=== PATIENT | female | born 1960 ===

== ENCOUNTER 2016-05-26 08:35 | Emergency (ER) | payer MEDICAID ==
[2016-05-26 08:49] VITALS: BP 114/63; PULSE 84; RESP 16; TEMP 98.2; O2SAT 98; BMI 34.7
[2016-05-26] MEDS ORDERED: Sodium Chloride 0.9% 1,000 ML IV STA (09:40)
--- NOTE | 2016-05-26 10:35 | ED PDOC ---
HPI: Headache Time Seen by Provider: 05/26/16 09:18 Chief Complaint (Nursing): Headache Chief Complaint (Provider): Headache History Per: Patient History/Exam Limitations: no limitations Onset/Duration Of Symptoms: Days (x5 days) Current Symptoms Are (Timing): Still Present Additional Complaint(s): 56 y/o female who presents to the emergency department with a complaint of a typical migraine described as a frontal headache x5days. Patient states she is usually able to tolerate Toradol by mouth but currently is unable to because she has been vomiting. Denies photophobia or visual changes. Of note, patient stated she followed up with her nuerologist for migraines. Last CAT Scan performed showed no significant abnormalities. Past Medical History Reviewed: Historical Data, Nursing Documentation, Vital Signs Vital Signs: Last Vital Signs Temp 98.2 F 05/26/16 08:48 Pulse 84 05/26/16 08:48 Resp 16 05/26/16 08:48 BP 114/63 05/26/16 08:48 Pulse Ox 98 05/26/16 08:48 - Medical History PMH: Diabetes, Migraine - Surgical History Surgical History: No Surg Hx - Family History Family History: States: Unknown Family Hx - Social History Current smoker - smoking cessation education provided: No Alcohol: None Drugs: Denies - Allergies Allergies/Adverse Reactions: Allergies Allergy/AdvReac Type Severity Reaction Status Date / Time sumatriptan [From Imitrex] Allergy SWELLING Verified 04/27/15 19:13 sumatriptan succinate Allergy SWELLING Verified 04/27/15 19:13 [From Imitrex] Review of Systems ROS Statement: Except As Marked, All Systems Reviewed And Found Negative Eyes: Negative for: Vision Change (or photophobia) Neurological: Positive for: Headache (frontal) Physical Exam - Reviewed Nursing Documentation Reviewed: Yes Vital Signs Reviewed: Yes - Physical Exam Appears: Positive for: Non-toxic, No Acute Distress Head Exam: Positive for: ATRAUMATIC, NORMOCEPHALIC Skin: Positive for: Normal Color, Warm, Dry Eye Exam: Positive for: Normal appearance. Negative for: Conjunctival injection ENT: Positive for: Normal ENT Inspection. Negative for: Pharyngeal Erythema Neck: Positive for: Normal, Supple Cardiovascular/Chest: Positive for: Regular Rate, Rhythm. Negative for: Murmur Respiratory: Positive for: Normal Breath Sounds. Negative for: Accessory Muscle Use, Respiratory Distress Gastrointestinal/Abdominal: Positive for: Normal Exam, Soft. Negative for: Tenderness Extremity: Positive for: Normal ROM. Negative for: Pedal Edema, Swelling Neurologic/Psych: Positive for: Alert, Oriented - ECG O2 Sat by Pulse Oximetry: 98 (RA) Pulse Ox Interpretation: Normal - Progress ED Course And Treament: Pt administered Toradol and Zofran IM. Re-evaluation Time: 11:24 Condition: Improved Medical Decision Making Medical Decision Making: Time: 9:18 Initial impression: Migraines Initial plan: --Patient is refusing IV meds and only wants IM due to migraines. --Sodium Chloride 1,000 ml IV 1,000 mls/hr --Toradol 30 mg IM --Zofran INJ 4 mg IM --AccuCheck Scribe Attestation: Documented by Amairani Montes, acting as a scribe for Paola Hopson MD. Provider Scribe Attestation: All medical record entries made by the Scribe were at my direction and personally dictated by me. I have reviewed the chart and agree that the record accurately reflects my personal performance of the history, physical exam, medical decision making, and the department course for this patient. I have also personally directed, reviewed, and agree with the discharge instructions and disposition. Disposition - Clinical Impression Clinical Impression: Migraine - Disposition Referrals: Isaac Swanson MD [Primary Care Provider] - Condition: IMPROVED Instructions: Migraine Headache (ED) Print Language: CAPE VERDEAN
== END 2016-05-26 11:30 | disposition home or self-care (01) ==
LOC: H.ER 08:35
DX: G43.909 Migraine, unspecified, not intractable, without status migrainosus (principal); E11.9 Type 2 diabetes mellitus without complications

== ENCOUNTER 2016-06-29 18:08 | Emergency (ER) | payer MEDICAID ==
[2016-06-29 18:09] VITALS: BMI 34.7
[2016-06-29 18:19] VITALS: BP 133/82; PULSE 68; RESP 16; TEMP 98.1; O2SAT 100
--- NOTE | 2016-06-29 18:40 | ED PDOC ---
HPI: Headache Time Seen by Provider: 06/29/16 18:21 Chief Complaint (Nursing): Headache Chief Complaint (Provider): Headache History Per: Patient History/Exam Limitations: no limitations Onset/Duration Of Symptoms: Days (4 days ago) Current Symptoms Are (Timing): Constant Severity: Severe Preceeding Symptoms: Known Migraine Symptoms (similar previous episodes of migraines in the past). denies: Visual Disturbances Associated Symptoms: Nausea, Vomiting, Other (dizziness; denies a fever or difficulty with speech or gait). denies: Photophobia, Blurred Vision Additional Complaint(s): Billie Flanagan is a 56 year old female, with a past medical history of known migraines (last previous onset was 1 month ago), who presents to the emergency department for the evaluation of a headache, localized to her eyes and forehead , that the patient has been experiencing for the past 4 days. Pain is constant, described as severe, and radiates to the back of her head. Patient took Toradol PO prior to arrival; however, it only provided minimal relief, prompting her visit to the ED. She reports one episode of vomiting yesterday and states that she is currently unable to tolerate medications. Associated nausea and dizziness are currently present. Denies a fever, blurry vision, focal weakness, difficulty with speech or an unsteady gait. Stress exacerbates her symptoms. Of note, patient recently came back from [place] where she had to deal with her elderly father's finances. She also has a neurologist that she frequently follows up with. PMD: Isaac Swanson Past Medical History Reviewed: Historical Data, Nursing Documentation, Vital Signs Vital Signs: Last Vital Signs Temp 98.1 F 06/29/16 18:17 Pulse 68 06/29/16 18:17 Resp 16 06/29/16 18:17 BP 133/82 06/29/16 18:17 Pulse Ox 100 06/29/16 18:17 - Medical History PMH: Diabetes, HTN, Migraine - Surgical History Surgical History: - Family History Family History: States: Diabetes, Hypertension - Social History Current smoker - smoking cessation education provided: No Ex-Smoker (has not smoked in the last 12 months): No Alcohol: None Drugs: Denies - Home Medications Home Medications: Ambulatory Orders Medication Instructions Recorded Ketorolac Tromethamine [Toradol] 10 mg PO Q6 PRN #30 tab 06/29/16 Ondansetron ODT [Zofran ODT] 1 odt PO Q6 PRN #30 odt 06/29/16 - Allergies Allergies/Adverse Reactions: Allergies Allergy/AdvReac Type Severity Reaction Status Date / Time No Known Allergies Allergy Verified 06/29/16 18:17 Review of Systems ROS Statement: Except As Marked, All Systems Reviewed And Found Negative Constitutional: Negative for: Fever Eyes: Negative for: Vision Change, Other (focal weakness) Gastrointestinal: Positive for: Nausea, Vomiting Musculoskeletal: Positive for: Other (head pain, localized to her eyes and forehead, radiating to the back of her head) Neurological: Positive for: Headache, Dizziness. Negative for: Change in Speech , Other (unsteady gait) Physical Exam - Reviewed Nursing Documentation Reviewed: Yes Vital Signs Reviewed: Yes - Physical Exam Appears: Positive for: Non-toxic, In Acute Distress (moderate painful distress) Head Exam: Positive for: ATRAUMATIC, NORMAL INSPECTION, NORMOCEPHALIC Skin: Positive for: Normal Color, Warm, Dry Eye Exam: Positive for: EOMI, Normal appearance, PERRL ENT: Positive for: Normal ENT Inspection. Negative for: Pharyngeal Erythema, Tonsillar Exudate Neck: Positive for: Normal, Painless ROM, Supple Cardiovascular/Chest: Positive for: Regular Rate, Rhythm. Negative for: Murmur Respiratory: Positive for: Normal Breath Sounds. Negative for: Wheezing Gastrointestinal/Abdominal: Positive for: Normal Exam, Soft. Negative for: Tenderness Back: Positive for: Normal Inspection. Negative for: Decreased ROM Extremity: Positive for: Normal ROM. Negative for: Deformity Lymphatic: Negative for: Adenopathy Neurologic/Psych: Positive for: Alert, Oriented. Negative for: Motor/Sensory Deficits - ECG O2 Sat by Pulse Oximetry: 100 (RA) Pulse Ox Interpretation: Normal Medical Decision Making Medical Decision Makin:21 Initial Impression: Migraine headache Initial Plan: * Toradol 30 mg IM * Zofran Inj 4 mg IM * Reevaluation 730P Improved and eager to go home. Scribe Attestation: Documented by Jeff Soni, acting as a scribe for Brittney Aragon MD. Provider Scribe Attestation: All medical record entries made by the Scribe were at my direction and personally dictated by me. I have reviewed the chart and agree that the record accurately reflects my personal performance of the history, physical exam, medical decision making, and the department course for this patient. I have also personally directed, reviewed, and agree with the discharge instructions and disposition. Disposition - Clinical Impression Clinical Impression: Migraine - Disposition Referrals: Matheus Skinner MD [Non-Staff] - 07/01/16 (FOLLOW UP WITH YOUR NEUROLOGIST FRIDAY) Disposition: Routine/Home Disposition Time: 19:30 Condition: IMPROVED Prescriptions: Ketorolac Tromethamine [Toradol] 10 mg PO Q6 PRN #30 tab PRN Reason: Headache Ondansetron ODT [Zofran ODT] 1 odt PO Q6 PRN #30 odt PRN Reason: Nausea/Vomiting Instructions: Migraine Headache (ED)
== END 2016-06-29 20:14 | disposition home or self-care (01) ==
LOC: H.ER 18:08
DX: G43.909 Migraine, unspecified, not intractable, without status migrainosus (principal); I10 Essential (primary) hypertension; E11.9 Type 2 diabetes mellitus without complications

== ENCOUNTER 2017-03-05 12:45 | Emergency (ER) | payer MEDICAID ==
[2017-03-05 12:46] VITALS: BMI 34.7
[2017-03-05 13:09] VITALS: BP 132/57; PULSE 70; RESP 16; TEMP 98; O2SAT 99
--- NOTE | 2017-03-05 13:43 | ED PDOC ---
HPI: Headache Time Seen by Provider: 03/05/17 13:17 Chief Complaint (Nursing): Headache Chief Complaint (Provider): Headache History Per: Patient History/Exam Limitations: no limitations Onset/Duration Of Symptoms: Days (x1 week) Current Symptoms Are (Timing): Still Present Quality: Pressure Preceeding Symptoms: None Associated Symptoms: Photophobia, Nausea, Vomiting, Other (dizziness) Additional Complaint(s): Billie Flanagan is a 57 year old female, with a past medical history of hypertension, diabetes, and migraines, who presents to the emergency department complaining of migraines associated with dizziness, nausea, vomit and light sensitivity onset for x1 week. She describes the pain as pressure across the anterior portion of her head. Patient states she took divalproex with some relief. She reports her migraines began after son passed, and are usually triggered by stress. She denies any neck pain or pain in the back of the head. No other medical complaints. PMD: None provided. Past Medical History Reviewed: Historical Data, Nursing Documentation, Vital Signs Vital Signs: Last Vital Signs Temp 98.0 F 03/05/17 13:05 Pulse 70 03/05/17 13:05 Resp 16 03/05/17 13:05 BP 132/57 L 03/05/17 13:05 Pulse Ox 99 03/05/17 13:05 - Medical History PMH: Diabetes, HTN, Migraine - Surgical History Surgical History: - Family History Family History: States: Unknown Family Hx, Diabetes, Hypertension - Home Medications Home Medications: Ambulatory Orders Medication Instructions Recorded Ketorolac Tromethamine [Toradol] 10 mg PO Q6 PRN #30 tab 06/29/16 Ondansetron ODT [Zofran ODT] 1 odt PO Q6 PRN #30 odt 06/29/16 Acetaminophen/Butalbital/Caf 1 tab PO Q4 #10 tab 03/05/17 [Fioricet] Ketorolac Tromethamine [Toradol] 10 mg PO Q4 #30 tab 03/05/17 Meclizine [Meclizine*] 25 mg PO Q6 #30 tab 03/05/17 - Allergies Allergies/Adverse Reactions: Allergies Allergy/AdvReac Type Severity Reaction Status Date / Time No Known Allergies Allergy Verified 03/05/17 13:05 Review of Systems ROS Statement: Except As Marked, All Systems Reviewed And Found Negative Eyes: Positive for: Other (light sensitivity) Gastrointestinal: Positive for: Nausea, Vomiting Musculoskeletal: Negative for: Neck Pain Neurological: Positive for: Headache, Dizziness Physical Exam - Reviewed Nursing Documentation Reviewed: Yes Vital Signs Reviewed: Yes - Physical Exam Appears: Positive for: Non-toxic Head Exam: Positive for: ATRAUMATIC, NORMAL INSPECTION, NORMOCEPHALIC Skin: Positive for: Normal Color, Warm, Dry Eye Exam: Positive for: Normal appearance Neck: Positive for: Normal, Painless ROM, Supple Extremity: Positive for: Normal ROM. Negative for: Pedal Edema, Deformity, Swelling Neurologic/Psych: Positive for: Alert, Oriented - ECG O2 Sat by Pulse Oximetry: 99 (RA) Pulse Ox Interpretation: Normal Medical Decision Making Medical Decision Making: Initial Impression: Migraines Initial Plan: --Toradol 30 mg IM --Reglan 10 mg PO --reevaluation 14:35 --Upon provider reevaluation patient is feeling better, is medically stable, and requires no further treatment in the ED at this time. Patient will be discharged with Rx for Toradol, Meclizine, and Fioricet. Counseling was provided and all questions were answered regarding diagnosis. There is agreement to discharge plan. Return if symptoms persist or worsen. ~ Scribe Attestation: Documented by Jeff Del Cid, acting as a scribe for Brittney Hummel PA-C. Provider Scribe Attestation: All medical record entries made by the Scribe were at my direction and personally dictated by me. I have reviewed the chart and agree that the record accurately reflects my personal performance of the history, physical exam, medical decision making, and the department course for this patient. I have also personally directed, reviewed, and agree with the discharge instructions and disposition. Disposition - Clinical Impression Clinical Impression: Migraine - Patient ED Disposition Is Patient to be Admitted: No - Disposition Disposition: Routine/Home Disposition Time: 14:35 Condition: STABLE Prescriptions: Acetaminophen/Butalbital/Caf [Fioricet] 1 tab PO Q4 #10 tab Ketorolac Tromethamine [Toradol] 10 mg PO Q4 #30 tab Meclizine [Meclizine*] 25 mg PO Q6 #30 tab Instructions: Migraine Headache (ED) Forms: [facility] (Georgian) Print Language: GREENLANDIC
[2017-03-05] MEDS: Metoclopramide 10 mg/10 ml Cup PO STA (14:04)
== END 2017-03-05 14:45 | disposition home or self-care (01) ==
LOC: H.ER 12:45
DX: G43.909 Migraine, unspecified, not intractable, without status migrainosus (principal); E11.9 Type 2 diabetes mellitus without complications; I10 Essential (primary) hypertension
CPT/HCPCS: 96372; 99284; J1885

== ENCOUNTER 2017-05-05 13:28 | Emergency (ER) | payer MEDICAID ==
[2017-05-05 13:28] VITALS: BMI 34.7
[2017-05-05 13:39] VITALS: BP 116/63; PULSE 67; RESP 16; TEMP 98.6; O2SAT 99
--- NOTE | 2017-05-05 15:03 | ED PDOC ---
HPI: Headache Time Seen by Provider: 05/05/17 13:55 Chief Complaint (Nursing): Headache History Per: Patient History/Exam Limitations: no limitations Onset/Duration Of Symptoms: Days (1), Gradual Current Symptoms Are (Timing): Still Present Severity: Moderate Quality: Dull, Aching Preceeding Symptoms: None Associated Symptoms: denies: Photophobia, Blurred Vision, Nausea, Vomiting, Extremity Weakness Additional History Per: Patient Additional Complaint(s): Complaints of headache beginning yesterday associated with nausea. Hx of Migraines and this is exactly the same to her sx in the past approx 6 visits last year for the same complaint denies head trauma or neck pain. sx exacerbated when she "gets stressed". Took medication for dizziness today. Past Medical History Reviewed: Historical Data, Nursing Documentation, Vital Signs Vital Signs: Last Vital Signs Temp 98.6 F 05/05/17 13:36 Pulse 67 05/05/17 13:36 Resp 16 05/05/17 13:36 BP 116/63 05/05/17 13:36 Pulse Ox 99 05/05/17 13:36 - Medical History PMH: Diabetes, HTN, Migraine - Surgical History Surgical History: - Family History Family History: States: Unknown Family Hx, Diabetes, Hypertension - Living Arrangements Living Arrangements: With Family - Social History Current smoker - smoking cessation education provided: No - Home Medications Home Medications: Ambulatory Orders Medication Instructions Recorded Ketorolac Tromethamine [Toradol] 10 mg PO Q6 PRN #30 tab 06/29/16 Ondansetron ODT [Zofran ODT] 1 odt PO Q6 PRN #30 odt 06/29/16 Acetaminophen/Butalbital/Caf 1 tab PO Q4 #10 tab 03/05/17 [Fioricet] Ketorolac Tromethamine [Toradol] 10 mg PO Q4 #30 tab 03/05/17 Meclizine [Meclizine*] 25 mg PO Q6 #30 tab 03/05/17 - Allergies Allergies/Adverse Reactions: Allergies Allergy/AdvReac Type Severity Reaction Status Date / Time No Known Allergies Allergy Verified 03/05/17 13:05 Review of Systems ROS Statement: Except As Marked, All Systems Reviewed And Found Negative Constitutional: Negative for: Fever, Chills Cardiovascular: Negative for: Chest Pain, Palpitations Respiratory: Negative for: Cough, Shortness of Breath Gastrointestinal: Negative for: Nausea, Vomiting, Abdominal Pain, Diarrhea Neurological: Positive for: Headache, Dizziness. Negative for: Weakness, Numbness, Incoordination, Change in Speech, Confusion, Seizures, Altered Mental Status Physical Exam - Reviewed Nursing Documentation Reviewed: Yes Vital Signs Reviewed: Yes - Physical Exam Appears: Positive for: Uncomfortable Head Exam: Positive for: ATRAUMATIC, NORMAL INSPECTION, NORMOCEPHALIC Eye Exam: Positive for: Normal appearance, EOMI, PERRL. Negative for: Nystagmus , Periorbital swelling, Periorbital tenderness, Conjunctival injection, Scleral icterus Neck: Positive for: Normal, Painless ROM, Supple. Negative for: Decreased ROM, Limited ROM, Trachea Midline, Pain On Movement Of Neck Cardiovascular/Chest: Positive for: Regular Rate, Rhythm, Chest Non Tender. Negative for: Edema, Gallop, Murmur, Bradycardia, Tachycardia Respiratory: Positive for: Normal Breath Sounds. Negative for: Decreased Breath Sounds, Accessory Muscle Use, Crackles, Rales, Rhonchi, Stridor, Wheezing , Respiratory Distress Gastrointestinal/Abdominal: Positive for: Normal Exam, Bowel Sounds, Soft. Negative for: Tenderness Extremity: Positive for: Normal ROM. Negative for: Tenderness, Pedal Edema Neurologic/Psych: Positive for: Alert, mower sharpener II-XII, Oriented, Mood/Affect ( anxious), Cerebellar Tests (nml), Gait (steady). Negative for: Motor/Sensory Deficits, Aphasia, Facial Droop - ECG O2 Sat by Pulse Oximetry: 99 Pulse Ox Interpretation: Normal - Progress ED Course And Treament: sx markedly improved. refuses any other treatment will f/u with private neurologist. all of pt's questions were answered and pt agree's with plan. pt leaves ambulatory and in good spirits. Re-evaluation Time: 16:22 Condition: Improved Medical Decision Making Medical Decision Making: pt refusing labs and ct scan pt made aware fo risks states last several ct scan were nml. Disposition - Clinical Impression Clinical Impression: Acute headache, Chronic headache disorder - Patient ED Disposition Is Patient to be Admitted: No Counseled Patient/Family Regarding: Studies Performed, Diagnosis, Need For Followup - Disposition Referrals: [facility] [Outside] (2 to 3 days, our your private neurologist) Disposition: Routine/Home Disposition Time: 16:00 Condition: STABLE Instructions: Acute Headache (ED) Forms: [facility] (Filipino), [facility] (Thai) Print Language: MALIAN
== END 2017-05-05 16:56 | disposition home or self-care (01) ==
LOC: H.ER 13:28
DX: R51 Headache (principal); E11.9 Type 2 diabetes mellitus without complications; G89.29 Other chronic pain; I10 Essential (primary) hypertension
CPT/HCPCS: 82948; 96372; 99284; J1885

== ENCOUNTER 2017-06-11 10:55 | Emergency (ER) | payer MEDICAID ==
[2017-06-11 11:08] VITALS: BMI 33.6
[2017-06-11 11:09] VITALS: PULSE 66; RESP 16; TEMP 98.4
--- NOTE | 2017-06-11 12:14 | ED PDOC ---
HPI: Headache Time Seen by Provider: 06/11/17 11:00 Chief Complaint (Nursing): Headache Chief Complaint (Provider): Headache, Dizziness History Per: Patient History/Exam Limitations: no limitations Onset/Duration Of Symptoms: Days (x 3) Current Symptoms Are (Timing): Still Present Additional Complaint(s): Billie is a 57 y/o female with a history of migraines who presents to the ED complaining of migraine and vertigo for the past 3 days. Patient states she frequently gest headachse like this, due to her migraines. its progressive, non thunderclap and non maximal at onset. Denies fever, vomiting, or diarrhea. PMD: [place]ast[place] Past Medical History Reviewed: Historical Data, Nursing Documentation, Vital Signs Vital Signs: Last Vital Signs Temp 98.4 F 06/11/17 11:08 Pulse 66 06/11/17 11:08 Resp 16 06/11/17 11:08 BP 130/82 06/11/17 11:08 Pulse Ox 97 06/11/17 11:08 - Medical History PMH: Diabetes, HTN, Migraine - Surgical History Surgical History: - Family History Family History: States: Unknown Family Hx, Diabetes, Hypertension - Social History Current smoker - smoking cessation education provided: No Alcohol: None Drugs: Denies - Home Medications Home Medications: Ambulatory Orders Medication Instructions Recorded Ketorolac Tromethamine [Toradol] 10 mg PO Q6 PRN #30 tab 06/29/16 Ondansetron ODT [Zofran ODT] 1 odt PO Q6 PRN #30 odt 06/29/16 Acetaminophen/Butalbital/Caf 1 tab PO Q4 #10 tab 03/05/17 [Fioricet] Ketorolac Tromethamine [Toradol] 10 mg PO Q4 #30 tab 03/05/17 Meclizine [Meclizine*] 25 mg PO Q6 #30 tab 03/05/17 Acetaminophen/Butalbital/Caf 1 tab PO Q6 PRN #12 tab 05/05/17 [Fioricet] - Allergies Allergies/Adverse Reactions: Allergies Allergy/AdvReac Type Severity Reaction Status Date / Time No Known Allergies Allergy Verified 03/05/17 13:05 Review of Systems ROS Statement: Except As Marked, All Systems Reviewed And Found Negative Constitutional: Negative for: Fever Gastrointestinal: Negative for: Vomiting, Diarrhea Neurological: Positive for: Headache, Dizziness Physical Exam - Reviewed Nursing Documentation Reviewed: Yes Vital Signs Reviewed: Yes - Physical Exam Appears: Positive for: Well, Non-toxic, No Acute Distress Skin: Positive for: Normal Color, Warm, Dry Eye Exam: Positive for: Normal appearance ENT: Positive for: Normal ENT Inspection Neck: Positive for: Normal Cardiovascular/Chest: Positive for: Regular Rate, Rhythm. Negative for: Murmur Respiratory: Positive for: Normal Breath Sounds. Negative for: Wheezing, Respiratory Distress Gastrointestinal/Abdominal: Positive for: Normal Exam, Soft. Negative for: Tenderness Extremity: Positive for: Normal ROM Neurologic/Psych: Positive for: Alert, medicaid plan compliance director II-XII, Oriented, Gait (stable). Negative for: Motor/Sensory Deficits, Aphasia, Facial Droop - ECG O2 Sat by Pulse Oximetry: 97 (RA) Pulse Ox Interpretation: Normal Medical Decision Making Medical Decision Making: Time: 12:05 Initial Impression: Migraine, Vertigo normal neurological exam. history of migraines. Initial Plan: --CMP --CBC --Reglan --Toradol Time: 13:48 --Patient refusing bloodwork. States she is seeing her neurologist in 3 days where she will have that done. Only wants Reglan PO and Toradol IM Time: 15:00 --Patient reports feeling better. stable gait. normal neurological exam. Stable for discharge home. Scribe Attestation: Documented by David Tucker, acting as a scribe for Suze Cheek MD Provider Scribe Attestation: All medical record entries made by the Scribe were at my direction and personally dictated by me. I have reviewed the chart and agree that the record accurately reflects my personal performance of the history, physical exam, medical decision making, and the department course for this patient. I have also personally directed, reviewed, and agree with the discharge instructions and disposition. Disposition - Clinical Impression Clinical Impression: Migraine - Patient ED Disposition Is Patient to be Admitted: No Counseled Patient/Family Regarding: Diagnosis, Need For Followup - Disposition Disposition: Routine/Home Disposition Time: 13:00 Condition: IMPROVED Additional Instructions: follow up with your primary doctor in 1-2 days return to the ED with any worsening or concerning symptoms Instructions: Migraine Headaches in Adults Forms: [facility] (Angolan)
[2017-06-11 15:21] VITALS: BP 136/72
[2017-06-12 21:45] VITALS: O2SAT 97
== END 2017-06-11 15:21 | disposition home or self-care (01) ==
LOC: H.ER 10:55
DX: G43.909 Migraine, unspecified, not intractable, without status migrainosus (principal); E11.9 Type 2 diabetes mellitus without complications; I10 Essential (primary) hypertension
CPT/HCPCS: 96372; 99283; J1885

== ENCOUNTER 2017-08-01 10:23 | Emergency (ER) | payer MEDICAID ==
[2017-08-01 10:42] VITALS: BMI 41.3
[2017-08-01] MEDS ORDERED: Sodium Chloride 0.9% 1,000 ML IV STA (11:23)
--- NOTE | 2017-08-01 11:28 | ED PDOC ---
HPI: Headache Chief Complaint (Provider): headache History Per: Patient History/Exam Limitations: no limitations Onset/Duration Of Symptoms: Days Current Symptoms Are (Timing): Constant Pain Scale Rating Of: 10 Quality: "Pain" Preceeding Symptoms: denies: Visual Disturbances Associated Symptoms: Photophobia. denies: Blurred Vision, Nausea, Vomiting, Extremity Weakness Additional Complaint(s): 57 y/o F with h/o Migraine headaches presents complaining of similar episode of her migraine headaches. Her headaches started on Friday, daily, but not constant , taken Fioricet, but is not helping, no radiating, aggravating with lights, loud noises, improving when lying quiet in a dark room. Patient states that this is not the worse headaches of her life. Denies N/V, Cp, SOB, fevers, chills , blurry vision, tingling, numbness, or weakness. PMD: Dr. Fernandez PMHx: HTN, DM <Kianna Barnes - Last Filed: 08/01/17 14:08> <Juan Carlos Cifuentes - Last Filed: 08/01/17 14:15> Time Seen by Provider: 08/01/17 11:06 Chief Complaint (Nursing): Headache Supervising Attending Note - Supervising Attending Note The Documented history was done by the: Physician Automated Access Systems Technician The documented physical exam was done by the: Physician Automated Access Systems Technician The documented procedures were done by the: Physician Automated Access Systems Technician - Attestation: I have personally seen and examined this patient.: Yes I have fully participated in the care of the patient.: Yes I have reviewed all pertinent clinical information: Yes - Notes: Notes:: migraine. Same as previous. No neck pain. Not worst in her life. No numbness , tingles, weakness. <Juan Carlos Cifuentes - Last Filed: 08/01/17 14:15> Past Medical History Vital Signs: Last Vital Signs Temp 97.4 F L 08/01/17 10:40 Pulse 65 08/01/17 10:40 Resp 20 08/01/17 10:40 BP 126/90 08/01/17 10:40 Pulse Ox 100 08/01/17 10:40 - Medical History PMH: Diabetes, HTN, Migraine - Surgical History Surgical History: Other surgeries: Right knee surgery - Family History Family History: States: Unknown Family Hx, Diabetes, Hypertension - Social History Current smoker - smoking cessation education provided: No Ex-Smoker (has not smoked in the last 12 months): No Alcohol: None Drugs: Denies <Kianna Barnes - Last Filed: 08/01/17 14:08> Vital Signs: Last Vital Signs Temp 97.4 F L 08/01/17 10:40 Pulse 65 08/01/17 10:40 Resp 20 08/01/17 10:40 BP 126/90 08/01/17 10:40 Pulse Ox 100 08/01/17 14:12 <Juan Carlos Cifuentes - Last Filed: 08/01/17 14:15> - Home Medications Home Medications: Ambulatory Orders Medication Instructions Recorded Ketorolac Tromethamine [Toradol] 10 mg PO Q6 PRN #30 tab 06/29/16 Ondansetron ODT [Zofran ODT] 1 odt PO Q6 PRN #30 odt 06/29/16 Acetaminophen/Butalbital/Caf 1 tab PO Q4 #10 tab 03/05/17 [Fioricet] Ketorolac Tromethamine [Toradol] 10 mg PO Q4 #30 tab 03/05/17 Meclizine [Meclizine*] 25 mg PO Q6 #30 tab 03/05/17 Acetaminophen/Butalbital/Caf 1 tab PO Q6 PRN #12 tab 05/05/17 [Fioricet] Ibuprofen [Motrin Tab] 600 mg PO Q8 PRN #15 tab 08/01/17 - Allergies Allergies/Adverse Reactions: Allergies Allergy/AdvReac Type Severity Reaction Status Date / Time No Known Allergies Allergy Verified 08/01/17 11:10 Review of Systems ROS Statement: Except As Marked, All Systems Reviewed And Found Negative (as per HPI) <Kianna Barnes - Last Filed: 08/01/17 14:08> Physical Exam - Reviewed Nursing Documentation Reviewed: Yes Vital Signs Reviewed: Yes - Physical Exam Appears: Positive for: Non-toxic, No Acute Distress Head Exam: Positive for: ATRAUMATIC, NORMOCEPHALIC Skin: Positive for: Normal Color, Warm, Dry. Negative for: Diaphoresis, Pallor , Rash ENT: Positive for: Pharynx Is (normal), TM Is/Are (intact and normal). Negative for: Sinus Pain/Drainage, Nasal Congestion, Pharyngeal Erythema, Tonsillar Exudate Neck: Positive for: Normal, Supple Cardiovascular/Chest: Positive for: Regular Rate, Rhythm. Negative for: Chest Non Tender, Edema, Gallop, Friction Rub Respiratory: Positive for: Normal Breath Sounds. Negative for: Decreased Breath Sounds, Accessory Muscle Use, Crackles, Rales, Rhonchi, Stridor, Wheezing , Respiratory Distress Gastrointestinal/Abdominal: Positive for: Bowel Sounds (present and normal), Soft. Negative for: Tenderness, Distended, Guarding, Rebound Back: Positive for: Normal Inspection Extremity: Negative for: Pedal Edema, Calf Tenderness Neurologic/Psych: Positive for: Alert, security system sales consultant II-XII (grossly intact), Oriented (x 3). Negative for: Motor/Sensory Deficits, Gait, Aphasia, Facial Droop <Kianna Barnes - Last Filed: 08/01/17 14:08> - ECG O2 Sat by Pulse Oximetry: 100 <Kianna Barnes - Last Filed: 08/01/17 14:08> - ECG Pulse Ox Interpretation: Normal - Progress ED Course And Treament: 1414: Stable. AAOx3. Pain free. Wants to go home. Tolerated PO. <Juan Carlos Cifuentes - Last Filed: 08/01/17 14:15> Medical Decision Making Medical Decision Making: Headaches -most likely migraine headaches -no neurological defects -Reglan 10 mg IV once -IV fluids bolus once case discussed with Dr. Cifuentes -re-assess Re-evaluation -patient refused Reglan -Toradol 15 mg given -patient feels better, headaches improved significantly, ad she would like to go home -stable for DC home, and f/u with PMD in 1 week. -ER precautions given <Kianna Barnes - Last Filed: 08/01/17 14:08> Disposition - Patient ED Disposition Is Patient to be Admitted: No Discussed With : Juan Carlos Cifuentes - Disposition Disposition: Routine/Home Disposition Time: 13:55 <Kianna Barnes Last Filed: 08/01/17 14:08> - Patient ED Disposition Is Patient to be Admitted: No - Disposition Disposition: Routine/Home <Juan Carlos Cifuentes Last Filed: 08/01/17 14:15> - Clinical Impression Clinical Impression: Headache - Disposition Referrals: [facility] [Outside] - 08/04/17 Condition: STABLE Additional Instructions: F/u with PMD in 2-3 days E precautions given Prescriptions: Ibuprofen [Motrin Tab] 600 mg PO Q8 PRN #15 tab PRN Reason: Headache Instructions: Headache, Adult (DC) Print Language: SOUTH KOREAN
[2017-08-01 14:50] VITALS: BP 125/79; PULSE 76; RESP 16; TEMP 98.2; O2SAT 98
== END 2017-08-01 14:50 | disposition home or self-care (01) ==
LOC: H.ER 10:23
DX: R51 Headache (principal); E11.9 Type 2 diabetes mellitus without complications; I10 Essential (primary) hypertension; Z87.891 Personal history of nicotine dependence
CPT/HCPCS: 96374; 99285; J1885; J7030

== ENCOUNTER 2017-11-07 10:01 | Emergency (ER) | payer MEDICAID ==
[2017-11-07 10:02] VITALS: BMI 41.3
[2017-11-07 10:22] VITALS: BP 110/70; PULSE 74; RESP 18; TEMP 98.1; O2SAT 99
--- NOTE | 2017-11-07 10:47 | ED PDOC ---
Syncope/Near Syncope/Dizziness Time Seen by Provider: 11/07/17 10:20 Chief Complaint (Nursing): Dizziness/Lightheaded Chief Complaint (Provider): Dizziness/Lightheaded History Per: Patient History/Exam Limitations: no limitations Activity At Onset Of Symptoms: Walking Additional Complaint(s): 57 years old female with history of diabetes, asthma and migraine headaches presents to the ED for evaluation of constant headaches associated with dizziness, nausea and vomiting. Patient reports she has not seen her PMD for 3 months and will visit his office on Friday for asthma. She states she feels uncomfortable with walking. Patient reports taking Tylenol yesterday 2 tablets every 6 hours with no improvement, and 500 mg Naproxen that was prescribed for her by her neurologist. Patient denies fever, fall, sore throat, burning with urination or taking any medications for migraines. PMD: Talisha Past Medical History Reviewed: Historical Data, Nursing Documentation, Vital Signs Vital Signs: Last Vital Signs Temp 98.1 F 11/07/17 10:12 Pulse 74 11/07/17 10:12 Resp 18 11/07/17 10:12 BP 110/70 11/07/17 10:12 Pulse Ox 99 11/07/17 10:12 - Medical History PMH: Diabetes, HTN, Migraine - Surgical History Surgical History: Back Surgery, Other surgeries: Right knee surgery - Family History Family History: States: Unknown Family Hx, Diabetes, Hypertension - Social History Current smoker - smoking cessation education provided: No Alcohol: None Drugs: Denies - Immunization History Hx Tetanus Toxoid Vaccination: No Hx Influenza Vaccination: No Hx Pneumococcal Vaccination: No - Home Medications Home Medications: Ambulatory Orders Medication Instructions Recorded Ketorolac Tromethamine [Toradol] 10 mg PO Q6 PRN #30 tab 06/29/16 Ondansetron ODT [Zofran ODT] 1 odt PO Q6 PRN #30 odt 06/29/16 Acetaminophen/Butalbital/Caf 1 tab PO Q4 #10 tab 03/05/17 [Fioricet] Ketorolac Tromethamine [Toradol] 10 mg PO Q4 #30 tab 03/05/17 Meclizine [Meclizine*] 25 mg PO Q6 #30 tab 03/05/17 Acetaminophen/Butalbital/Caf 1 tab PO Q6 PRN #12 tab 05/05/17 [Fioricet] Ibuprofen [Motrin Tab] 600 mg PO Q8 PRN #15 tab 08/01/17 Ketorolac Tromethamine [Toradol] 10 mg PO Q6H PRN #19 tab 11/07/17 - Allergies Allergies/Adverse Reactions: Allergies Allergy/AdvReac Type Severity Reaction Status Date / Time No Known Allergies Allergy Verified 08/01/17 11:10 Review of Systems ROS Statement: Except As Marked, All Systems Reviewed And Found Negative Constitutional: Negative for: Fever ENT: Negative for: Throat Pain Gastrointestinal: Positive for: Nausea, Vomiting Genitourinary Female: Negative for: Dysuria Neurological: Positive for: Headache, Dizziness Physical Exam - Reviewed Nursing Documentation Reviewed: Yes Vital Signs Reviewed: Yes - Physical Exam Appears: Positive for: Non-toxic, No Acute Distress Head Exam: Positive for: ATRAUMATIC, NORMOCEPHALIC Skin: Positive for: Normal Color, Warm, Dry Eye Exam: Positive for: Normal appearance Neck: Positive for: Normal, Supple Cardiovascular/Chest: Positive for: Regular Rate, Rhythm. Negative for: Murmur Respiratory: Positive for: Normal Breath Sounds. Negative for: Wheezing, Respiratory Distress Gastrointestinal/Abdominal: Positive for: Normal Exam, Soft. Negative for: Tenderness Back: Negative for: L CVA Tenderness, R CVA Tenderness Extremity: Positive for: Normal ROM. Negative for: Tenderness, Swelling Neurologic/Psych: Positive for: Alert, Oriented (x3) - ECG O2 Sat by Pulse Oximetry: 99 (RA) Pulse Ox Interpretation: Normal Medical Decision Making Medical Decision Making: Time: 1048 Initial Impression: Migraines Initial Plan: --Dipstick urine --Toradol 60 mg IM ----- Scribe Attestation: Documented by Elo Lara, acting as a scribe for Yolis Siddiqui MD. Provider Scribe Attestation: All medical record entries made by the Scribe were at my direction and personally dictated by me. I have reviewed the chart and agree that the record accurately reflects my personal performance of the history, physical exam, medical decision making, and the department course for this patient. I have also personally directed, reviewed, and agree with the discharge instructions and disposition. Disposition - Clinical Impression Clinical Impression: Migraine - Patient ED Disposition Is Patient to be Admitted: No Doctor Will See Patient In The: Office Counseled Patient/Family Regarding: Diagnosis, Need For Followup, Rx Given - Disposition Disposition: Routine/Home Disposition Time: 12:00 Condition: IMPROVED Prescriptions: Ketorolac Tromethamine [Toradol] 10 mg PO Q6H PRN #19 tab PRN Reason: Pain, Moderate (4-7) Instructions: Migraine Headache (DC) Forms: [employer] (Kazakh) Print Language: BELGIAN - POA Present On Arrival: None
== END 2017-11-07 12:45 | disposition home or self-care (01) ==
LOC: H.ER 10:01
DX: G43.909 Migraine, unspecified, not intractable, without status migrainosus (principal); E11.9 Type 2 diabetes mellitus without complications; I10 Essential (primary) hypertension
CPT/HCPCS: 96372; 99283; J1885

== ENCOUNTER 2018-02-25 16:29 | Emergency (ER) | payer OTHER, MEDICAID ==
--- NOTE | 2018-02-25 20:03 | ED PDOC ---
Lower Extremity Pain/Injury Time Seen by Provider: 02/25/18 19:21 Chief Complaint (Nursing): Lower Extremity Problem/Injury Chief Complaint (Provider): Right knee pain History Per: Patient History/Exam Limitations: no limitations Onset/Duration Of Symptoms: Days (2 weeks) Current Symptoms Are (Timing): Still Present Additional Complaint(s): 58 year old female presents to the ED for an evaluation of right leg pain. 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 She did obtain an MRI and was told she has bone to bone. Patient has been going to therapy. Two weeks ago, in therapy, weight was placed on her leg and now she complaints of pain and inflammation. Otherwise, patient denies fever or chills. PMD: Non [facility] provider Past Medical History Reviewed: Historical Data, Nursing Documentation, Vital Signs - Medical History PMH: Diabetes, HTN, Migraine - Surgical History Surgical History: Back Surgery, - Family History Family History: States: Unknown Family Hx, Diabetes, Hypertension - Immunization History Hx Tetanus Toxoid Vaccination: No Hx Influenza Vaccination: No Hx Pneumococcal Vaccination: No - Home Medications Home Medications: Ambulatory Orders Medication Instructions Recorded Ketorolac Tromethamine [Toradol] 10 mg PO Q6 PRN #30 tab 06/29/16 Ondansetron ODT [Zofran ODT] 1 odt PO Q6 PRN #30 odt 06/29/16 Acetaminophen/Butalbital/Caf 1 tab PO Q4 #10 tab 03/05/17 [Fioricet] Ketorolac Tromethamine [Toradol] 10 mg PO Q4 #30 tab 03/05/17 Meclizine [Meclizine*] 25 mg PO Q6 #30 tab 03/05/17 Acetaminophen/Butalbital/Caf 1 tab PO Q6 PRN #12 tab 05/05/17 [Fioricet] Ibuprofen [Motrin Tab] 600 mg PO Q8 PRN #15 tab 08/01/17 Ketorolac Tromethamine [Toradol] 10 mg PO Q6H PRN #19 tab 11/07/17 Cyclobenzaprine [Flexeril] 10 mg PO TID #27 tab 02/25/18 Diclofenac Sodium 50 mg PO BID #30 tablet. 02/25/18 - Allergies Allergies/Adverse Reactions: Allergies Allergy/AdvReac Type Severity Reaction Status Date / Time No Known Allergies Allergy Verified 08/01/17 11:10 Review of Systems ROS Statement: Except As Marked, All Systems Reviewed And Found Negative Constitutional: Negative for: Fever, Chills Musculoskeletal: Positive for: Leg Pain (right) Neurological: Negative for: Weakness, Numbness Physical Exam - Reviewed Nursing Documentation Reviewed: Yes Vital Signs Reviewed: Yes - Physical Exam Appears: Positive for: Non-toxic, No Acute Distress Head Exam: Positive for: ATRAUMATIC, NORMAL INSPECTION, NORMOCEPHALIC Skin: Positive for: Normal Color, Warm, Dry. Negative for: Rash Eye Exam: Positive for: Normal appearance Cardiovascular/Chest: Positive for: Regular Rate, Rhythm. Negative for: Murmur Respiratory: Positive for: Normal Breath Sounds. Negative for: Decreased Breath Sounds, Wheezing, Respiratory Distress Extremity: Positive for: Normal ROM (full extension of right knee beyond 90 degrees), Other (mild crepitus) Neurologic/Psych: Positive for: Alert, Oriented (x3) - ECG Pulse Ox Interpretation: Normal Medical Decision Making Medical Decision Making: Time: 1955 Initial Impression: right knee pain Initial Plan: Decadron Inj 10mg Flexeril 10mg Toradol 60mg Reevaluation - pain greatly improved rx flexeril and diclofenac 50 Scribe Attestation: Documented by Jumana Barker, acting as a scribe for Ta Flores PA-C. Provider Scribe Attestation: All medical record entries made by the Scribe were at my direction and personally dictated by me. I have reviewed the chart and agree that the record accurately reflects my personal performance of the history, physical exam, medical decision making, and the department course for this patient. I have also personally directed, reviewed, and agree with the discharge instructions and disposition. Disposition - Clinical Impression Clinical Impression: Knee pain, Chronic knee pain - Patient ED Disposition Is Patient to be Admitted: No Doctor Will See Patient In The: Office Counseled Patient/Family Regarding: Studies Performed, Diagnosis, Need For Followup, Rx Given - Disposition Disposition: Routine/Home Disposition Time: 20:58 Condition: STABLE Prescriptions: Cyclobenzaprine [Flexeril] 10 mg PO TID #27 tab Diclofenac Sodium 50 mg PO BID #30 tablet. Instructions: Chronic Knee Pain, Chronic Knee Pain (DC) Forms: [employer] (North Korean)
== END 2018-02-25 21:06 | disposition home or self-care (01) ==
LOC: H.ER 16:29
DX: M25.561 Pain in right knee (principal); G89.29 Other chronic pain; E11.9 Type 2 diabetes mellitus without complications; I10 Essential (primary) hypertension
CPT/HCPCS: 96372; 99283; J1100; J1885

== ENCOUNTER 2018-04-21 10:18 | Emergency (ER) | payer MEDICAID, OTHER ==
[2018-04-21 10:31] VITALS: O2SAT 99
--- NOTE | 2018-04-21 11:42 | ED PDOC ---
Syncope/Near Syncope/Dizziness Time Seen by Provider: 04/21/18 10:41 Chief Complaint (Nursing): Dizziness/Lightheaded Chief Complaint (Provider): Dizziness History Per: Patient History/Exam Limitations: no limitations Additional Complaint(s): 58yo female with history of migraines, comes to ER reporting headache and lightheadedness, which she states is similar to her migraine headaches. She also reports associated dizziness with walking. Otherwise, no vision changes, weakness, numbness, vomiting, falls, syncope, chest pain or shortness of breath. No additional medical complaints. PMD: Dr. Swanson Past Medical History Reviewed: Historical Data, Nursing Documentation, Vital Signs Vital Signs: Last Vital Signs Temp 97.0 F L 04/21/18 10:30 Pulse 69 04/21/18 10:30 Resp 18 04/21/18 10:30 BP 136/81 04/21/18 10:30 Pulse Ox 99 04/21/18 10:30 - Medical History PMH: Diabetes, HTN, Migraine - Surgical History Surgical History: Back Surgery, - Family History Family History: States: Unknown Family Hx, Diabetes, Hypertension - Social History Current smoker - smoking cessation education provided: No Alcohol: None Drugs: Denies - Immunization History Hx Tetanus Toxoid Vaccination: No Hx Influenza Vaccination: No Hx Pneumococcal Vaccination: No - Home Medications Home Medications: Ambulatory Orders Medication Instructions Recorded Ketorolac Tromethamine [Toradol] 10 mg PO Q6 PRN #30 tab 06/29/16 Ondansetron ODT [Zofran ODT] 1 odt PO Q6 PRN #30 odt 06/29/16 Acetaminophen/Butalbital/Caf 1 tab PO Q4 #10 tab 03/05/17 [Fioricet] Ketorolac Tromethamine [Toradol] 10 mg PO Q4 #30 tab 03/05/17 Meclizine [Meclizine*] 25 mg PO Q6 #30 tab 03/05/17 Acetaminophen/Butalbital/Caf 1 tab PO Q6 PRN #12 tab 05/05/17 [Fioricet] Ibuprofen [Motrin Tab] 600 mg PO Q8 PRN #15 tab 08/01/17 Ketorolac Tromethamine [Toradol] 10 mg PO Q6H PRN #19 tab 11/07/17 Cyclobenzaprine [Flexeril] 10 mg PO TID #27 tab 02/25/18 Diclofenac Sodium 50 mg PO BID #30 tablet. 02/25/18 Ibuprofen [Motrin] 600 mg PO TID 7 Days tab 04/21/18 - Allergies Allergies/Adverse Reactions: Allergies Allergy/AdvReac Type Severity Reaction Status Date / Time No Known Allergies Allergy Verified 08/01/17 11:10 Review of Systems ROS Statement: Except As Marked, All Systems Reviewed And Found Negative Constitutional: Negative for: Fever, Chills Eyes: Negative for: Vision Change Cardiovascular: Positive for: Light Headedness. Negative for: Chest Pain Respiratory: Negative for: Shortness of Breath Gastrointestinal: Negative for: Vomiting Neurological: Positive for: Headache, Dizziness. Negative for: Weakness, Numbness Physical Exam - Reviewed Nursing Documentation Reviewed: Yes Vital Signs Reviewed: Yes - Physical Exam Appears: Positive for: Non-toxic, No Acute Distress Head Exam: Positive for: ATRAUMATIC, NORMAL INSPECTION, NORMOCEPHALIC Skin: Positive for: Normal Color, Warm, DRY Eye Exam: Positive for: EOMI, PERRL Neck: Positive for: Normal, Supple Cardiovascular/Chest: Positive for: Regular Rate, Rhythm Respiratory: Positive for: Normal Breath Sounds Back: Positive for: Normal Inspection. Negative for: L CVA Tenderness, R CVA Tenderness Extremity: Positive for: Normal ROM, Other (no drift). Negative for: Deformity Neurologic/Psych: Positive for: Alert, service center appraiser II-XII, Oriented. Negative for: Motor/Sensory Deficits, Aphasia, Facial Droop - ECG O2 Sat by Pulse Oximetry: 99 (RA) Pulse Ox Interpretation: Normal Medical Decision Making Medical Decision Making: Impression: Migraine headache Plan: -- Patient declined any labs, IV fluids or imaging studies. She states toradol alleviates her pain and only wants that for treatment. -- Toradol 15mg IM Scribe Attestation: Documented by Ana Yi acting as a scribe for Juan Carlos Cifuentes MD Provider Attestation: All medical record entries made by the Scribe were at my direction and personally dictated by me. I have reviewed the chart and agree that the record accurately reflects my personal performance of the history, physical exam, medical decision making, and the department course for this patient. I have also personally directed, reviewed, and agree with the discharge instructions and disposition. Disposition - Clinical Impression Clinical Impression: Migraine - Disposition Referrals: [facility] [place] [Outside] - 04/22/18 Additional Instructions: Return if you want further work up, not feeling well, or any changes. Prescriptions: Ibuprofen [Motrin] 600 mg PO TID 7 Days tab Instructions: Migraine Headache (DC) Print Language: EMIRATI
[2018-04-21 12:01] VITALS: BP 132/78; PULSE 70; RESP 16; TEMP 97.2
--- NOTE | 2018-04-21 20:35 | CARD ---
APPROVED REPORT Date of service: 04/21/2018 EKG Measurement Heart [id number] <Conclusion> Normal sinus rhythm Moderate voltage criteria for LVH, may be normal variant Borderline ECG
== END 2018-04-21 12:08 | disposition short-term general hospital (02) ==
LOC: H.ER 10:18
DX: G43.909 Migraine, unspecified, not intractable, without status migrainosus (principal); E11.9 Type 2 diabetes mellitus without complications; I10 Essential (primary) hypertension
CPT/HCPCS: 82948; 93005; 96372; 99283; J1885

== ENCOUNTER 2018-04-22 20:29 | Emergency (ER) | payer MEDICAID ==
--- NOTE | 2018-04-22 22:54 | ED PDOC ---
HPI: Headache Time Seen by Provider: 04/22/18 22:26 Chief Complaint (Nursing): Headache Chief Complaint (Provider): headache History Per: Patient History/Exam Limitations: no limitations Onset/Duration Of Symptoms: Days (5), Waxing/Waning Current Symptoms Are (Timing): Still Present Preceeding Symptoms: Known Migraine Symptoms Associated Symptoms: Photophobia Additional Complaint(s): 58 y/o female history of migraine headaches, hypertension, diabetes, presents for evaluation of headache x 5 days. Patient states pain localized to right side of head and behind right eye, with associated nausea and photophobia. Patient states symptoms similar to her typical migraines; states sometimes she needs an injection of Toradol for relief. Denies fever, neck pain, extremity numbness/weakness, vision changes, chest pain, shortness of breath, palpitations. Past Medical History Reviewed: Historical Data, Nursing Documentation, Vital Signs Vital Signs: Last Vital Signs Temp 98.2 F 04/22/18 21:04 Pulse 73 04/22/18 21:04 Resp 16 04/22/18 21:04 BP 127/74 04/22/18 21:04 Pulse Ox 100 04/22/18 21:04 - Medical History PMH: Diabetes, HTN, Migraine - Surgical History Surgical History: Back Surgery, - Family History Family History: States: Unknown Family Hx, Diabetes, Hypertension - Immunization History Hx Tetanus Toxoid Vaccination: No Hx Influenza Vaccination: No Hx Pneumococcal Vaccination: No - Home Medications Home Medications: Ambulatory Orders Medication Instructions Recorded Ketorolac Tromethamine [Toradol] 10 mg PO Q6 PRN #30 tab 06/29/16 Ondansetron ODT [Zofran ODT] 1 odt PO Q6 PRN #30 odt 06/29/16 Acetaminophen/Butalbital/Caf 1 tab PO Q4 #10 tab 03/05/17 [Fioricet] Ketorolac Tromethamine [Toradol] 10 mg PO Q4 #30 tab 03/05/17 Meclizine [Meclizine*] 25 mg PO Q6 #30 tab 03/05/17 Acetaminophen/Butalbital/Caf 1 tab PO Q6 PRN #12 tab 05/05/17 [Fioricet] Ibuprofen [Motrin Tab] 600 mg PO Q8 PRN #15 tab 08/01/17 Ketorolac Tromethamine [Toradol] 10 mg PO Q6H PRN #19 tab 11/07/17 Cyclobenzaprine [Flexeril] 10 mg PO TID #27 tab 02/25/18 Diclofenac Sodium 50 mg PO BID #30 tablet. 02/25/18 Ibuprofen [Motrin] 600 mg PO TID 7 Days tab 04/21/18 Ketorolac Tromethamine [Toradol] 10 mg PO Q6 PRN #20 tab 04/23/18 - Allergies Allergies/Adverse Reactions: Allergies Allergy/AdvReac Type Severity Reaction Status Date / Time No Known Allergies Allergy Verified 04/22/18 21:04 Review of Systems ROS Statement: Except As Marked, All Systems Reviewed And Found Negative Neurological: Positive for: Headache Physical Exam - Reviewed Nursing Documentation Reviewed: Yes Vital Signs Reviewed: Yes - Physical Exam Appears: Positive for: Well, Non-toxic, No Acute Distress Head Exam: Positive for: ATRAUMATIC, NORMAL INSPECTION, NORMOCEPHALIC Skin: Positive for: Normal Color Eye Exam: Positive for: Normal appearance ENT: Positive for: Normal ENT Inspection Cardiovascular/Chest: Positive for: Regular Rate, Rhythm Respiratory: Positive for: Normal Breath Sounds Gastrointestinal/Abdominal: Positive for: Normal Exam Back: Positive for: Normal Inspection Extremity: Positive for: Normal ROM Neurologic/Psych: Positive for: Alert, Oriented (x3) - ECG O2 Sat by Pulse Oximetry: 100 - Progress ED Course And Treament: patient declines work up; just requesting medications at this time -accucheck -IV toradol -PO reglan On re-eval, patient states headache improved Patient educated on findings, discharged with rx Toradol Advised follow up Neurologist Return precautions given Disposition - Clinical Impression Clinical Impression: Migraine - Patient ED Disposition Is Patient to be Admitted: No Counseled Patient/Family Regarding: Studies Performed, Diagnosis, Need For Followup, Rx Given - Disposition Disposition: Routine/Home Disposition Time: 00:15 Condition: IMPROVED Prescriptions: Ketorolac Tromethamine [Toradol] 10 mg PO Q6 PRN #20 tab PRN Reason: Pain, Moderate (4-7) Instructions: Migraine Headaches in Adults Forms: [facility] ([place])
[2018-04-23 01:23] VITALS: BP 122/70; PULSE 78; RESP 18; TEMP 98; O2SAT 99
== END 2018-04-23 00:20 | disposition home or self-care (01) ==
LOC: H.ER 20:29
DX: G43.909 Migraine, unspecified, not intractable, without status migrainosus (principal); E11.9 Type 2 diabetes mellitus without complications; I10 Essential (primary) hypertension
CPT/HCPCS: 82948; 96372; 99285; J1885

== ENCOUNTER 2018-05-09 16:27 | Emergency (ER) | payer MEDICAID ==
[2018-05-09 16:33] VITALS: BP 103/68; PULSE 77; RESP 18; TEMP 98.3; O2SAT 100
--- NOTE | 2018-05-09 18:31 | ED PDOC ---
HPI: Headache Time Seen by Provider: 05/09/18 17:11 Chief Complaint (Nursing): Headache Chief Complaint (Provider): Headache History Per: Patient History/Exam Limitations: no limitations Onset/Duration Of Symptoms: Days (4x) Current Symptoms Are (Timing): Still Present Severity: Moderate Associated Symptoms: Photophobia, Blurred Vision (bilateral), Other (dizziness). denies: Nausea, Vomiting Additional Complaint(s): 58 year old female with a past medical history of diabetes, hypertension, and migraines presents to the ED with complaints of a migraine headache ongoing for the past 4x days. Patient states that the headache is over her bilateral eyes, more so behind her right eye. Patient verbalizes that this headache feels like a usual migraine episode. Patient further reports having associated photophobia, blurred vision, and dizziness (as if she is swaying). Patient denies having nausea or vomiting. Patient states that she usually takes topamax and meclizine as needed for her migraine headaches, and reports taking meclizine today. PMD: None provided Past Medical History Reviewed: Historical Data, Nursing Documentation, Vital Signs Vital Signs: Last Vital Signs Temp 98.3 F 05/09/18 16:30 Pulse 77 05/09/18 16:30 Resp 18 05/09/18 16:30 BP 103/68 05/09/18 16:30 Pulse Ox 100 05/09/18 16:30 EPIFANIO Report Viewed: Yes - Medical History PMH: Diabetes, HTN, Migraine - Surgical History Surgical History: Back Surgery, - Family History Family History: States: Diabetes, Hypertension - Social History Current smoker - smoking cessation education provided: No Alcohol: None Drugs: Denies - Immunization History Hx Tetanus Toxoid Vaccination: No Hx Influenza Vaccination: No Hx Pneumococcal Vaccination: No - Home Medications Home Medications: Ambulatory Orders Medication Instructions Recorded Ketorolac Tromethamine [Toradol] 10 mg PO Q6 PRN #30 tab 06/29/16 Ondansetron ODT [Zofran ODT] 1 odt PO Q6 PRN #30 odt 06/29/16 Acetaminophen/Butalbital/Caf 1 tab PO Q4 #10 tab 03/05/17 [Fioricet] Ketorolac Tromethamine [Toradol] 10 mg PO Q4 #30 tab 03/05/17 Meclizine [Meclizine*] 25 mg PO Q6 #30 tab 03/05/17 Acetaminophen/Butalbital/Caf 1 tab PO Q6 PRN #12 tab 05/05/17 [Fioricet] Ibuprofen [Motrin Tab] 600 mg PO Q8 PRN #15 tab 08/01/17 Ketorolac Tromethamine [Toradol] 10 mg PO Q6H PRN #19 tab 11/07/17 Cyclobenzaprine [Flexeril] 10 mg PO TID #27 tab 02/25/18 Diclofenac Sodium 50 mg PO BID #30 tablet. 02/25/18 Ibuprofen [Motrin] 600 mg PO TID 7 Days tab 04/21/18 Ketorolac Tromethamine [Toradol] 10 mg PO Q6 PRN #20 tab 04/23/18 Ondansetron ODT [Zofran ODT] 4 mg PO Q6H #6 odt 05/09/18 - Allergies Allergies/Adverse Reactions: Allergies Allergy/AdvReac Type Severity Reaction Status Date / Time No Known Allergies Allergy Verified 05/09/18 16:30 Review of Systems ROS Statement: Except As Marked, All Systems Reviewed And Found Negative Gastrointestinal: Negative for: Nausea, Vomiting Neurological: Positive for: Headache (over bilateral eyes, moreso behind right eye.), Dizziness, Other (bilateral blurred vision, photophobia) Physical Exam - Reviewed Nursing Documentation Reviewed: Yes Vital Signs Reviewed: Yes - Physical Exam Appears: Positive for: Well, Non-toxic, No Acute Distress Head Exam: Positive for: ATRAUMATIC, NORMOCEPHALIC Skin: Positive for: Normal Color, Warm, Dry Eye Exam: Positive for: Normal appearance, EOMI, PERRL Cardiovascular/Chest: Positive for: Regular Rate, Rhythm Respiratory: Positive for: Normal Breath Sounds Neurological/Psych: Positive for: Awake, Alert, Oriented (3x), Gait (steady), Cerebellar Tests (normal), records management coordinator II-XII (in tact). Negative for: Motor/Sensory Deficits - ECG O2 Sat by Pulse Oximetry: 100 (RA) Pulse Ox Interpretation: Normal Medical Decision Making Medical Decision Makin:11 Initial impression: 58 year old female with a migraine headache Initial plan: Patient is refusing IV fluids and medications. Patient prefers to be given toradol IM and reglan PO. * toradol 60 mg IM * reglan 10 mg PO * accucheck * reevaluation Accucheck: 81 Patient states that this is low for her. Patient given juice. will reassess after medications. 18:50 diagnosis: migraine. Patient states that she has toradol at home, and will use it for pain, as well as topomax. Upon reevaluation Patient states that she feels much better after the toradol and reglan. Patient is medically stable, and requires no further treatment in the ED at this time. Patient will be discharged home with Rx for zofran 4 mg PO Q6H for nausea and vomiting. Gave patient 's information for neurology follow up Patient has a steady gait, and reports improvement in dizziness. Counseling was provided and all questions were answered regarding diagnosis and need for follow up with . There is agreement to discharge plan. Return if symptoms persist or worsen. ScribeAttestation: Documented byKianna Lanier, acting as a scribe for Jessica Blackman [facility]. Provider ScribeAttestation: All medical record entries made by the Scribe were at my direction and personally dictated by me. I have reviewed the chart and agree that the record accurately reflects my personal performance of the history, physical exam, medic al decision making, and the department course for this patient. I have also personally directed, reviewed, and agree with the discharge instructions and disposition. Disposition - Clinical Impression Clinical Impression: Migraine - Patient ED Disposition Is Patient to be Admitted: No Counseled Patient/Family Regarding: Diagnosis, Rx Given - Disposition Referrals: Gaudencio Graff MD [Medical Doctor] - Disposition: Routine/Home Disposition Time: 18:50 Condition: IMPROVED Prescriptions: Ondansetron ODT [Zofran ODT] 4 mg PO Q6H #6 odt Instructions: Migraine Headaches in Adults Print Language: SPA - POA Present On Arrival: None
== END 2018-05-09 19:02 | disposition home or self-care (01) ==
LOC: H.ER 16:27
DX: G43.909 Migraine, unspecified, not intractable, without status migrainosus (principal); E11.9 Type 2 diabetes mellitus without complications; I10 Essential (primary) hypertension; Z79.899 Other long term (current) drug therapy
CPT/HCPCS: 82948; 96372; 99285; J1885

== ENCOUNTER 2018-06-28 13:03 | Emergency (ER) | payer MEDICAID ==
[2018-06-28 13:08] VITALS: BP 125/77; PULSE 83; RESP 15; TEMP 98; O2SAT 99
--- NOTE | 2018-06-28 13:43 | ED PDOC ---
Lower Extremity Pain/Injury Time Seen by Provider: 06/28/18 13:15 Chief Complaint (Nursing): Lower Extremity Problem/Injury Chief Complaint (Provider): left foot pain History Per: Patient History/Exam Limitations: no limitations Onset/Duration Of Symptoms: Days Current Symptoms Are (Timing): Still Present Severity: Mild Pain Scale Rating Of: 5 Additional History Per: Patient Additional Complaint(s): 58 y/o female with history of diabetes and migraines presents to the ED c/o left ankle and foot pain for 5 days after a slip and fall down 2-3 steps 5 days ago. Patient states she has been walking and doing activities of daily living for 5 days, pain worse when applying weight to foot, radiating up the the left calf. Pain states she took motrin 800mg once last night for pain. Patient denies increased left leg swelling, sob , chest pain, dizziness, head injury, numbness to lower extremity. - Ankle/Foot Description Of Injury: Fell Alleviating Factor(s): OTC Pain Medication Feet: 1 - swelling, tenderness - Risk Factors DVT Risk Factors: Pos: None Past Medical History Reviewed: Historical Data, Nursing Documentation, Vital Signs Vital Signs: Last Vital Signs Temp 98.0 F 06/28/18 13:07 Pulse 83 06/28/18 13:07 Resp 15 06/28/18 13:07 BP 125/77 06/28/18 13:07 Pulse Ox 99 06/28/18 13:07 - Medical History PMH: Diabetes, HTN, Migraine - Surgical History Surgical History: Back Surgery, - Family History Family History: States: Unknown Family Hx, Diabetes, Hypertension - Immunization History Hx Tetanus Toxoid Vaccination: No Hx Influenza Vaccination: No Hx Pneumococcal Vaccination: No - Home Medications Home Medications: Ambulatory Orders Medication Instructions Recorded Ketorolac Tromethamine [Toradol] 10 mg PO Q6 PRN #30 tab 06/29/16 Ondansetron ODT [Zofran ODT] 1 odt PO Q6 PRN #30 odt 06/29/16 Acetaminophen/Butalbital/Caf 1 tab PO Q4 #10 tab 03/05/17 [Fioricet] Ketorolac Tromethamine [Toradol] 10 mg PO Q4 #30 tab 03/05/17 Meclizine [Meclizine*] 25 mg PO Q6 #30 tab 03/05/17 Acetaminophen/Butalbital/Caf 1 tab PO Q6 PRN #12 tab 05/05/17 [Fioricet] Ibuprofen [Motrin Tab] 600 mg PO Q8 PRN #15 tab 08/01/17 Ketorolac Tromethamine [Toradol] 10 mg PO Q6H PRN #19 tab 11/07/17 Cyclobenzaprine [Flexeril] 10 mg PO TID #27 tab 02/25/18 Diclofenac Sodium 50 mg PO BID #30 tablet. 02/25/18 Ibuprofen [Motrin] 600 mg PO TID 7 Days tab 04/21/18 Ketorolac Tromethamine [Toradol] 10 mg PO Q6 PRN #20 tab 04/23/18 Ondansetron ODT [Zofran ODT] 4 mg PO Q6H #6 odt 05/09/18 - Allergies Allergies/Adverse Reactions: Allergies Allergy/AdvReac Type Severity Reaction Status Date / Time No Known Allergies Allergy Verified 06/28/18 13:08 Wells Criteria for PE - Wells Criteria for Pulmonary Embolism Clinical Signs and Symptoms of DVT: No P.E is #1 Diagnosis, or Equally Likely: No Heart Rate >100: No Immobilization at least 3 days;Surgery previous 4 weeks: No Previous, objectively diagnosed PE or DVT: No Hemoptysis: No Malignancy w/treatment within 6 months, or palliative: No Total Score: 0 Review of Systems ROS Statement: Except As Marked, All Systems Reviewed And Found Negative Musculoskeletal: Positive for: Leg Pain, Foot Pain (and swelling ) Physical Exam - Reviewed Nursing Documentation Reviewed: Yes Vital Signs Reviewed: Yes - Physical Exam Appears: Positive for: Well, Non-toxic, No Acute Distress Head Exam: Positive for: ATRAUMATIC, NORMAL INSPECTION, NORMOCEPHALIC Skin: Positive for: Normal Color, Warm, DRY Eye Exam: Positive for: EOMI, Normal appearance, PERRL ENT: Positive for: Normal ENT Inspection Neck: Positive for: Normal, Painless ROM Cardiovascular/Chest: Positive for: Regular Rate, Rhythm Respiratory: Positive for: CNT, Normal Breath Sounds Gastrointestinal/Abdominal: Positive for: Normal Exam, Soft Back: Positive for: Normal Inspection Extremity: Positive for: Normal ROM, Tenderness (point tenderness to anterior aspect of the foot, slight swelling to area, non -ecchymotic. ), Capillary Refill (<2 secs cap refill ), Swelling, Other (neg for swelling to inner or lateral aspect of the ankle. Patient has full rom of joint with minimal dicomfort. no tenderness to distal tib/fib or ecchymosis. ). Negative for: Deformity Neurological/Psych: Positive for: Awake, Alert, Normal Tone, Oriented - ECG O2 Sat by Pulse Oximetry: 99 Medical Decision Making Medical Decision Making: DORIAN bandage Air Cast Clinical exam findings discussed with patient. No further imaging needed in ED. Dorian bandage to ankle and foot for support. Aircast for ambulation. patient educated on RICE. Patient has motrin 800mg at home. Instructed to take for q6- 8hrs as needed. She understands and agrees with plan. Disposition - Clinical Impression Clinical Impression: Foot pain, Ankle sprain - Patient ED Disposition Is Patient to be Admitted: No Counseled Patient/Family Regarding: Diagnosis - Disposition Disposition: Routine/Home Disposition Time: 13:45 Condition: GOOD Instructions: Foot Sprain (DC), Ankle Sprain Print Language: GREEK - POA Present On Arrival: None
== END 2018-06-28 14:56 | disposition home or self-care (01) ==
LOC: H.ER 13:03
DX: S93.402A Sprain of unspecified ligament of left ankle, initial encounter (principal); W10.9XXA Fall (on) (from) unspecified stairs and steps, initial encounter; Y92.89 Other specified places as the place of occurrence of the external cause; E11.9 Type 2 diabetes mellitus without complications; I10 Essential (primary) hypertension